=== PATIENT | female | born 1995 | race Caucasian/White ===

== ENCOUNTER 2016-09-05 09:57 | Outpatient (CLI) | payer BC, OTHER ==
[~2016-09-05] VITALS: Ht 162.6 cm; Wt 75.0 kg
[~2016-09-05 09:57] MED LIST: ENDOCET 5-3251 EACH PO; IBUPROFEN800 MG PO; PRENATAL TABLE1 EAC3 PO; PROMETHAZINE HC25 M1 PO; ZOFRAN ODT8 MG PO
[2016-09-05 11:03] LABS: ADD MIUA? YES; BILIRUBIN NEGATIVE; BLOOD NEGATIVE; COLOR YELLOW ((YELLOW)); GLUCOSE (STRIP) NEGATIVE; KETONES NEGATIVE; LEUKOCYTES TRACE; NITRITE NEGATIVE; PROTEIN (STRIP) NEGATIVE; SPECIFIC GRAVITY 1.017 (1.000-1.030); UROBILINOGEN 0.2 MG/DL (0.2-1.0)
[2016-09-05 11:14] LABS: BACTERIA RARE /HPF; EPITHELIAL CELLS 1+ /HPF; MUCUS TRACE /LPF; RED BLOOD CELLS 0-5 /HPF (0-5); UCUL ADDED? NO; WHITE BLOOD CELLS 0-5 /HPF (0-5)
[2016-09-05 11:25] VITALS: BP 107/57
[2016-09-05 12:48] VITALS: BP 111/56
[2016-09-05 14:24] VITALS: BP 100/54
[2016-09-05 15:35] VITALS: BP 103/49
[2016-09-05] MEDS ORDERED: PROCARDIA20 MG PO (15:45)
== END 2016-09-05 16:45 | disposition home or self-care (01) ==
LOC: LDRP-OP 09:57 → 2WEST 09:58 → LDRP-OP 12-17 16:06
PROVIDERS: Nurse Practitioner
DX: O60.03 Preterm labor without delivery, third trimester (principal); Z3A.29 29 weeks gestation of pregnancy; R51 Headache
CPT/HCPCS: 59025; 76815; 81003; 82731; G0378; J7120

== ENCOUNTER 2016-11-15 22:07 | Inpatient (IN) | payer BC, OTHER ==
[~2016-11-15] VITALS: Ht 157.5 cm; Wt 84.1 kg
[~2016-11-15 22:07] MED LIST changes: +PROCARDIA20 MG PO
[2016-11-15 22:27] VITALS: BP 115/68
[2016-11-15 23:46] VITALS: BP 111/65
[2016-11-16] VITALS (24 sets, daily range): BP systolic 89–123; BP diastolic 50–72
[2016-11-16 00:36] LABS: EOSINOPHIL (%) 1.1 % (0-5); EOSINOPHIL COUNT 0.1 K/uL (0-0.3); HEMATOCRIT 28.3 % (36.0-46.0); IMMATURE GRANULOCYTE COUNT 0.1 K/uL; INSTRUMENT ABS NEUTROPHIL CT 6.8 K/uL; LYMPHOCYTE COUNT 2.1 K/uL (1.0-2.8); MCH 29.9 PG (29.0-34.0); MCHC 32.5 G/DL (30.0-36.0); MCV 91.9 FL (83-99); MEAN PLAT.VOLUME 9.7 uM^3 (9.5-12.4); MONOCYTE (%) 9.3 % (3-12); MONOCYTE COUNT 0.9 K/uL (0-0.8); NEUTROPHIL (%) 67.1 % (45-76); NEUTROPHIL COUNT 6.8 K/uL (1.8-6.4); PLATELET COUNT 193 K/uL (156-360); RBC DIS.WIDTH-SD 47.1 % (39-53); RED BLOOD COUNT 3.08 M/uL (3.80-5.20); WHITE BLOOD COUNT 10.1 K/uL (4.1-10.2)
[2016-11-16] MEDS ORDERED: IBUPROFEN800 MG PO (10:00)
[2016-11-17 08:58] VITALS: BP 116/65
== END 2016-11-17 15:05 | disposition home or self-care (01) | DRG 775 ==
LOC: LDRP-OP 22:07 → 2WEST 22:09 → LDRP-OP 12-17 19:43
PROVIDERS: Advanced Practice Midwife
PROC: 3E033VJ Introduction of Other Hormone into Peripheral Vein, Percutaneous Approach (ICD-10-PCS; principal; 2016-11-16)
PROC: 00HU33Z Insertion of Infusion Device into Spinal Canal, Percutaneous Approach (ICD-10-PCS; principal; 2016-11-16)
PROC: 3E0R3CZ (ICD-10-PCS; principal; 2016-11-16)
PROC: 10907ZC Drainage of Amniotic Fluid, Therapeutic from Products of Conception, Via Natural or Artificial Opening (ICD-10-PCS; principal; 2016-11-16)
PROC: 10E0XZZ Delivery of Products of Conception, External Approach (ICD-10-PCS; principal; 2016-11-16)
DX: O60.23X0 Term delivery with preterm labor, third trimester, not applicable or unspecified (principal); O63.1 Prolonged second stage (of labor); O69.1XX0 Labor and delivery complicated by cord around neck, with compression, not applicable or unspecified; O77.0 Labor and delivery complicated by meconium in amniotic fluid; Z3A.40 40 weeks gestation of pregnancy; Z37.0 Single live birth
CPT/HCPCS: 85025; 86900; 86901; C1755; G0378; J3010; J7120

== ENCOUNTER 2017-06-10 20:15 | Emergency (ER) | payer BC ==
[~2017-06-10] VITALS: Ht 165.1 cm; Wt 75.7 kg
[2017-06-10 20:47] LABS: HEMATOCRIT 36.1 % (36.0-46.0); HEMOGLOBIN 12.1 G/DL (11.9-15.5); MCH 30.8 PG (29.0-34.0); MCHC 33.5 G/DL (30.0-36.0); MCV 91.9 FL (83-99); PLATELET COUNT 267 K/uL (156-360); RBC DIS.WIDTH-CV 12.8 % (11.8-14.6); RBC DIS.WIDTH-SD 42.9 % (39-53); RED BLOOD COUNT 3.93 M/uL (3.80-5.20); WHITE BLOOD COUNT 9.4 K/uL (4.1-10.2)
[2017-06-10 20:48] LABS: APPEARANCE CLEAR ((CLEAR)); BILIRUBIN NEGATIVE; BLOOD NEGATIVE; COLOR YELLOW ((YELLOW)); GLUCOSE (STRIP) NEGATIVE; KETONES NEGATIVE; LEUKOCYTES NEGATIVE; NITRITE NEGATIVE; PROTEIN (STRIP) NEGATIVE; UCUL ADDED? NO
[2017-06-10 20:59] LABS: ALBUMIN 4.3 g/dL (3.2-4.8); CHLORIDE 107 mEq/L (99-109); POTASSIUM 3.6 mEq/L (3.7-5.4); SODIUM 138 mEq/L (136-147)
[2017-06-10 21:01] LABS: GLUCOSE 101 mg/dL (70-99); TOTAL PROTEIN 7.7 g/dL (6.4-8.3)
[2017-06-10 21:03] LABS: TOTAL BILIRUBIN 0.9 mg/dL (0.0-1.0)
[2017-06-10 21:05] LABS: ALKALINE PHOSPHATASE 213 IU/L (3-129); CREATININE 0.7 mg/dL (0.6-1.3); GFR ESTIMATE (CALCULATED) > 59 mL/min/
[2017-06-10 21:06] LABS: UREA NITROGEN (BUN) 10 mg/dL (9-23)
[2017-06-10 21:07] LABS: AST (GOT) 162 IU/L (2-34)
[2017-06-10 21:08] LABS: ALT (GPT) 254 IU/L (3-49); LIPASE 37 U/L (1.0-51.0)
[2017-06-10 21:14] LABS: QUANTITATIVE HCG < 4.0 MIU/ML
[2017-06-11] MEDS ORDERED: ZOFRAN ODT4 MG PO (01:03)
[2017-06-11] MEDS ORDERED: PERCOCET 5/31 TABLET PO (01:03)
[2017-06-11 01:14] VITALS: BP 145/76
[2017-06-19] MEDS ORDERED: FLEXERIL5 MG PO (11:33)
== END 2017-06-11 01:15 | disposition home or self-care (01) ==
LOC: EME 20:15
DX: K80.70 Calculus of gallbladder and bile duct without cholecystitis without obstruction (principal); M54.9 Dorsalgia, unspecified; R79.89 Other specified abnormal findings of blood chemistry
CPT/HCPCS: 76705; 80053; 81003; 83690; 84702; 85027; 99281; 99284

== ENCOUNTER 2017-06-20 10:59 | Day surgery (SDC) | payer BC ==
[~2017-06-20] VITALS: Ht 165.1 cm; Wt 75.0 kg
[~2017-06-20 10:59] MED LIST changes: +FLEXERIL5 MG PO; +PERCOCET 5/31 TABLET PO; +ZOFRAN ODT4 MG PO
[2017-06-20 11:34] VITALS: BP 115/60
[2017-06-20] MEDS ORDERED: ONDANSETRON HCL8 MG PO (14:36)
[2017-06-20] MEDS ORDERED: COLACE100 MG PO (14:36)
[2017-06-20] MEDS ORDERED: PERCOCET 5/31 TABLET PO (14:36)
[2017-06-20 16:15] VITALS: BP 119/68
[2017-06-20 17:05] VITALS: BP 109/61
[2017-06-20 19:10] VITALS: BP 114/56
[2017-06-20 20:28] VITALS: BP 115/62
== END 2017-06-20 20:38 | disposition home or self-care (01) ==
LOC: SDC 10:59
PROVIDERS: Surgery
PROC: BF001ZZ Plain Radiography of Bile Ducts using Low Osmolar Contrast (ICD-10-PCS; principal; 2017-06-20)
PROC: 0FT44ZZ Resection of Gallbladder, Percutaneous Endoscopic Approach (ICD-10-PCS; principal; 2017-06-20)
DX: K80.10 Calculus of gallbladder with chronic cholecystitis without obstruction (principal)
CPT/HCPCS: 74300; 81025; 88304; J0690; J1170; J2250; J2405; J2710; J2765; J3010